=== PATIENT | female | born 1950 | race Caucasian/White ===

== ENCOUNTER 2018-06-18 07:08 | Emergency (ER) | payer OTHER ==
[~2018-06-18] VITALS: Ht 149.9 cm; Wt 74.8 kg
[~2018-06-18 07:08] MED LIST: ALDOMET250 MG; APRESOLINE 10MG10 MG; CATAFLAM50 MG PO; DEPO-MEDROL40 MG/ML IJ; DIOVAN320 MG PO; HEARTBURN TREAT15 MG PO; LEVAQUIN500 MG PO; NEURONTIN300 MG PO; OSTERA TABLET1 EACH PO; OXYCONTIN10 M1 PO; SYNTHROID137 MCG PO; XARELTO 10MG PO
[2018-06-18] MEDS ORDERED: LOSARTAN-HCTZ1 EAC1 (07:56)
[2018-06-18] MEDS ORDERED: NORVASC2.5 M1 (07:56)
== END 2018-06-18 12:04 | disposition home or self-care (01) ==
LOC: ER 07:08
DX: S80.02XA Contusion of left knee, initial encounter (principal); S80.01XA Contusion of right knee, initial encounter; S40.022A Contusion of left upper arm, initial encounter; S20.211A Contusion of right front wall of thorax, initial encounter; W18.09XA Striking against other object with subsequent fall, initial encounter; Y93.89 Activity, other specified; Y92.098 Other place in other non-institutional residence as the place of occurrence of the external cause; Y99.8 Other external cause status

== ENCOUNTER 2020-05-07 12:53 | Outpatient (CLI) | payer OTHER ==
[~2020-05-07 12:53] MED LIST changes: +LOSARTAN-HCTZ1 EAC1; +NORVASC2.5 M1
== END 2020-05-07 12:59 | disposition home or self-care (01) ==
LOC: RAD 12:53
PROVIDERS: ATTEND Orthopaedic Surgery
DX: M54.5 Low back pain (principal); M25.552 Pain in left hip

== ENCOUNTER → 2020-05-14 | Outpatient (CLI) | payer OTHER | END | disposition home or self-care (01) | LOC: RAD 08:49 | PROVIDERS: ATTEND Orthopaedic Surgery | DX: M25.532 Pain in left wrist (principal); M25.522 Pain in left elbow ==

== ENCOUNTER 2020-05-20 10:19 | Outpatient (CLI) | payer OTHER | END 2020-05-20 10:21 | disposition home or self-care (01) | LOC: RAD 10:19 | PROVIDERS: ATTEND Orthopaedic Surgery | DX: M25.522 Pain in left elbow (principal) ==

== ENCOUNTER 2020-06-12 06:23 | Outpatient (CLI) | payer OTHER | END 2020-06-12 06:30 | disposition home or self-care (01) | LOC: LAB 06:23 | PROVIDERS: ATTEND Orthopaedic Surgery | DX: M24.562 Contracture, left knee (principal); Z96.652 Presence of left artificial knee joint; M06.4 Inflammatory polyarthropathy; D64.89 Other specified anemias ==

== ENCOUNTER 2021-12-30 12:04 | Outpatient (CLI) | payer OTHER | END 2021-12-30 12:15 | disposition home or self-care (01) | LOC: RAD 12:04 | PROVIDERS: ATTEND Orthopaedic Surgery | DX: M25.561 Pain in right knee (principal) ==

== ENCOUNTER 2022-05-26 07:00 | Inpatient (IN) | payer OTHER ==
[~2022-05-26] VITALS: Ht 149.9 cm; Wt 78.5 kg
[2022-05-26] MEDS ORDERED: ZETIA10 MG PO (08:46)
[2022-05-26] MEDS ORDERED: VERAPAMIL ER240 MG PO (08:46)
[2022-05-26] MEDS ORDERED: ALPHA LIPOIC A600 MG PO (08:46)
[2022-05-26] MEDS ORDERED: ADULT LOW DOSE81 M1 PO (08:47)
[2022-05-26] MEDS ORDERED: LUNESTA2 MG PO (08:47)
[2022-05-26] MEDS ORDERED: HYDROCHLOROTHIA25 MG PO (08:47)
[2022-05-26] MEDS ORDERED: ZINC50 M1 PO (08:48)
[2022-05-26] MEDS ORDERED: EFFER-K 10 MEQ10 MEQ PO (08:48)
[2022-05-26] MEDS ORDERED: MAGNESIUM200 MG PO (08:49)
[2022-05-26] MEDS ORDERED: OMEGA-31000 MG PO (08:49)
[2022-05-26] MEDS ORDERED: EMERGEN-C 1,01000 MG PO (08:49)
[2022-05-31] MEDS ORDERED: LOSARTAN POTAS100 MG (08:43)
[2022-05-31] MEDS ORDERED: DICLOFENAC SOD100 GM (08:43)
[2022-05-31] MEDS ORDERED: ATORVASTATIN CA20 MG (08:44)
[2022-05-31] MEDS ORDERED: IBUPROFEN800 MG (08:44)
[2022-05-31] MEDS ORDERED: VITAMIN D21250 MCG (08:44)
== END 2022-06-02 17:53 | DRG 470 ==
LOC: SURH 05-31 06:05 → O/R 05-31 06:05 → SURH 05-31 07:00
PROVIDERS: ADMIT Orthopaedic Surgery; ATTEND Orthopaedic Surgery
PROC: 0SRC0J9 Replacement of Right Knee Joint with Synthetic Substitute, Cemented, Open Approach (ICD-10-PCS; principal; 2022-05-31 07:00)
DX: M17.11 Unilateral primary osteoarthritis, right knee (principal); M85.661 Other cyst of bone, right lower leg; Z20.822 Contact with and (suspected) exposure to COVID-19; I10 Essential (primary) hypertension; E03.8 Other specified hypothyroidism

== ENCOUNTER 2023-01-17 14:01 | Outpatient (CLI) | payer OTHER ==
[~2023-01-17 14:01] MED LIST changes: +ADULT LOW DOSE81 M1 PO; +ALPHA LIPOIC A600 MG PO; +ATORVASTATIN CA20 MG; +DICLOFENAC SOD100 GM; +EFFER-K 10 MEQ10 MEQ PO; +EMERGEN-C 1,01000 MG PO; +HYDROCHLOROTHIA25 MG PO; +IBUPROFEN800 MG; +LOSARTAN POTAS100 MG; +LUNESTA2 MG PO; +MAGNESIUM200 MG PO; +OMEGA-31000 MG PO; +VERAPAMIL ER240 MG PO; +VITAMIN D21250 MCG; +ZETIA10 MG PO; +ZINC50 M1 PO
== END 2023-01-17 14:06 | disposition home or self-care (01) ==
LOC: RAD 14:01
PROVIDERS: ATTEND Physical Medicine & Rehabilitation
DX: S89.81XA Other specified injuries of right lower leg, initial encounter (principal)